=== PATIENT | male | born 1985 | race Caucasian/White ===

== ENCOUNTER 2020-09-24 17:26 | Observation (INO) ==
[2020-09-24 19:30] LABS: Basophils % 0.2 % (0.0-0.8); Eosinophils % 0.1 % (0.00-10.9); Hematocrit 44.5 VOL% (42.0-52.0); Immature Granulocytes % 0.5 %; Immature Granulocytes Absolute 0.11 #; Lymphocytes # 1.9 10*3/uL (1.4-4.0); Lymphocytes % 9.4 % (21.2-54.2); Mean Corpuscular HGB Conc 31.5 GM/DL (32-36); Mean Corpuscular Volume 96.7 FL (87-102); Monocytes % 6.9 % (1.7-12.7); Neutrophils % 82.9 % (38.7-73.9); Platelet Count 169 T/CUMM (130-400); Red Cell Distribution Width 13.1 % (9.3-17.3); White Blood Count 20.6 T/CUMM (4-12)
[2020-09-24] MEDS ORDERED: PIPERACILLIN/TAZOBACTAM 3,375 MG in SODIUM CHLORIDE 0.9% 100 ML IV STA ×2 (19:37→20:09)
[2020-09-24] MEDS ORDERED: VANCOMYCIN INJ 1,000 MG in SODIUM CHLORIDE 0.9% 250 ML IV STA (19:37)
[2020-09-24] MEDS ORDERED: SODIUM CHLORIDE 0.9% 1,000 ML IV STA (19:38)
[2020-09-24] MEDS ORDERED: HYDROmorphone 2 MG/1 ML VIAL IV STA (19:38)
[2020-09-24] MEDS ORDERED: ONDANSETRON 4 MG/2 ML VIAL IV ONE (19:38)
[2020-09-24 19:43] LABS: INR 1.1; PT Patient Result 11.7 SECS (9.8-11.9)
[2020-09-24 19:50] LABS: Albumin 3.6 G/DL (3.4-5.0); Bilirubin,Total 1.1 MG/DL (0.2-1.0); Osmolality,Calculated 264.4 MOS/KG (273-304); Total Protein 7.4 G/DL (6.4-8.2)
[2020-09-24 20:14] LABS: Lymphocytes 8 % (20-55); Segmented Neutrophils 89 % (50-85); Total Cells Counted 100
[2020-09-24 20:15] LABS: Platelet Estimate Normal; Polychromasia Slight
[2020-09-24 20:17] LABS: Stomatocytes Few
[2020-09-24 20:38] LABS: Sedimentation Rate-Westergren 10 MM/HR (0-15)
[2020-09-24] MEDS ORDERED: GLUCAGON 1 MG VIAL IM PRN (20:47)
[2020-09-24] MEDS ORDERED: ALUMINUM/MAGNES/SIMETH MAX STR 30 ML UDCUP PO PRN (20:47)
[2020-09-24] MEDS ORDERED: SIMETHICONE CHEW 125 MG TABLET PO PRN (20:47)
[2020-09-24] MEDS ORDERED: DEXTROSE 50% 25 GM/50 ML VIAL IV PRN (20:47)
[2020-09-24] MEDS ORDERED: DOCUSATE SODIUM 100 MG CAPSULE PO PRN (20:47)
[2020-09-24] MEDS ORDERED: BISACODYL 5 MG TABLET PO PRN (20:47)
[2020-09-24] MEDS ORDERED: ZALEPLON 5 MG CAPSULE PO PRN (20:47)
[2020-09-24] MEDS ORDERED: CALCIUM CARBONATE CHEW 500 MG TABLET PO PRN (20:47)
[2020-09-25] MEDS: VANCOMYCIN INJ 1,750 MG in SODIUM CHLORIDE 0.9% 500 ML IV SCH ×2 (01:24→17:10)
[2020-09-25] MEDS: PIPERACILLIN/TAZOBACTAM 3,375 MG in SODIUM CHLORIDE 0.9% 100 ML IV SCH ×3 (04:54→21:15)
[2020-09-25] MEDS: ENOXAPARIN 40 MG/0.4 ML SYRINGE SUBCUT SCH (08:15)
[2020-09-25 08:26] LABS: Basophils # 0.1 10*3/uL (0.0-0.2); Basophils % 0.3 % (0.0-0.8); Eosinophils # 0.1 10*3/uL (0.0-0.87); Eosinophils % 0.5 % (0.00-10.9); Hemoglobin 12.6 GM/DL (14.0-18.0); Immature Granulocytes % 0.6 %; Immature Granulocytes Absolute 0.09 #; Lymphocytes # 2.2 10*3/uL (1.4-4.0); Lymphocytes % 13.9 % (21.2-54.2); Mean Corpuscular HGB Conc 32.3 GM/DL (32-36); Mean Corpuscular Volume 95.6 FL (87-102); Mean Platelet Volume 10.9 FL (9.6-12.0); Monocytes % 7.1 % (1.7-12.7); Neutrophils % 77.6 % (38.7-73.9); Platelet Count 141 T/CUMM (130-400); Red Blood Count 4.08 MC/CUMM (3.8-5.5); Red Cell Distribution Width 13.1 % (9.3-17.3); White Blood Count 15.6 T/CUMM (4-12)
[2020-09-25 08:49] LABS: Bilirubin,Total 0.9 MG/DL (0.2-1.0); Calcium 8.3 MG/DL (8.5-10.1); Osmolality,Calculated 263.4 MOS/KG (273-304); Potassium 3.8 MMOL/L (3.5-5.1); Total Protein 6.4 G/DL (6.4-8.2)
[2020-09-25] MEDS ORDERED: ONDANSETRON 4 MG/2 ML VIAL IV PRN (10:38)
[2020-09-25] MEDS ORDERED: NICOTINE 21 MG/24 HR PATCH TRANSDERM PRN (11:03)
[2020-09-25] MEDS: PANTOPRAZOLE 40 MG TABLET PO SCH (12:38)
[2020-09-25] MEDS: SODIUM CHLORIDE 0.9% 1,000 ML IV SCH ×2 (12:38→21:20)
[2020-09-25] MEDS: MORPHINE 4 MG/1 ML VIAL IV PRN (12:40)
[2020-09-26] MEDS: MORPHINE 4 MG/1 ML VIAL IV PRN ×2 (00:37→09:33)
[2020-09-26] MEDS: VANCOMYCIN INJ 1,750 MG in SODIUM CHLORIDE 0.9% 500 ML IV SCH (04:08)
[2020-09-26 05:04] LABS: Basophils % 0.3 % (0.0-0.8); Eosinophils # 0.2 10*3/uL (0.0-0.87); Eosinophils % 1.4 % (0.00-10.9); Hematocrit 40.7 VOL% (42.0-52.0); Hemoglobin 12.7 GM/DL (14.0-18.0); Immature Granulocytes % 0.7 %; Immature Granulocytes Absolute 0.09 #; Lymphocytes # 2.6 10*3/uL (1.4-4.0); Lymphocytes % 20.5 % (21.2-54.2); Mean Corpuscular HGB Conc 31.2 GM/DL (32-36); Mean Platelet Volume 11.1 FL (9.6-12.0); Monocytes % 5.2 % (1.7-12.7); Neutrophils % 71.9 % (38.7-73.9); Platelet Count 159 T/CUMM (130-400); Red Blood Count 4.24 MC/CUMM (3.8-5.5); White Blood Count 12.6 T/CUMM (4-12)
[2020-09-26 05:23] LABS: Calcium 8.7 MG/DL (8.5-10.1); Potassium 3.5 MMOL/L (3.5-5.1)
[2020-09-26] MEDS: PIPERACILLIN/TAZOBACTAM 3,375 MG in SODIUM CHLORIDE 0.9% 100 ML IV SCH ×2 (06:30→13:55)
[2020-09-26 08:12] VITALS: BP 144/96
[2020-09-26] MEDS: PANTOPRAZOLE 40 MG TABLET PO SCH (09:41)
[2020-09-26] MEDS: ENOXAPARIN 40 MG/0.4 ML SYRINGE SUBCUT SCH (09:41)
[2020-09-26] MEDS: SODIUM CHLORIDE 0.9% 1,000 ML IV SCH (10:41)
== END 2020-09-26 14:12 | disposition left against medical advice (07) ==
LOC: N.ED 17:26 → N.EDINP 20:37 → INTOOBSV 20:37 → N.2E 20:55
PROVIDERS: ADMIT Emergency Medicine; ATTEND Emergency Medicine